=== PATIENT | male | born 1965 | race Asian ===

== ENCOUNTER 2019-11-14 23:13 | Inpatient (IN) | payer OTHER ==
[~2019-11-14] VITALS: Ht 162.6 cm; Wt 59.0 kg
[2019-11-14 23:39] LABS: COLOR,URINE YELLOW (Yellow); GLUCOSE, URINE NEGATIVE (Neg); KETONES,URINE NEGATIVE (Neg); LEUKOCYTE ESTERASE ,URINE MODERATE (Neg); NITRITES, URINE POSITIVE (Neg); OCCULT BLOOD,URINE LARGE (Neg); PROTEIN,URINE >=300 mg/dl (Neg); UROBILINOGEN,URINE 0.2 E.U/dL (0.2-1.0)
[2019-11-14 23:47] LABS: CLARITY,URINE CLOUDY (Clear); UA COLLECTION TYPE CLN CATCH MIDSTREAM
[2019-11-14 23:48] LABS: BASOPHILS % (AUTO) 0.2 % (0-1); EOSINOPHILS # (AUTO) 0.1 X10'3 (0-0.9); EOSINOPHILS % (AUTO) 0.3 % (0-6); HEMOGLOBIN 11.3 g/dl (14.0-17.9); LYMPHOCYTES # (AUTO) 1.6 X10'3 (1.1-4.8); LYMPHOCYTES % (AUTO) 8.1 % (21-51); MEAN CORPUSCULAR HEMOGLOBIN 30.9 PG (27.0-31.0); MEAN CORPUSCULAR HGB CONC 34.4 g/dL (33.0-36.5); MEAN PLATELET VOLUME 8.8 FL (7.4-10.4); MONOCYTES # (AUTO) 2.5 X10'3 (0-0.9); MONOCYTES % (AUTO) 12.9 % (2-12); NEUTROPHILS # (AUTO) 15.3 X10'3 (1.8-7.7); NEUTROPHILS % (AUTO) 78.5 % (42-75); PLATELET COUNT 244 X10'3 (140-440); RED BLOOD COUNT 3.66 X10'6 (4.70-6.10); RED CELL DISTRIBUTION WIDTH 13.8 % (11.5-14.5); WHITE BLOOD COUNT 19.5 X10'3 (4.5-11.0)
[2019-11-14 23:48] LABS: BACTERIA,URINE 1+ /HPF (Neg); SQUAMOUS EPITHELIAL CELL,UR FEW /LPF (FEW); WBC CLUMPS,URINE FEW /HPF (NEGATIVE); WBC,URINE TNTC /HPF (0-4)
[2019-11-14 23:57] LABS: ALANINE AMINOTRANSFERASE 26 U/L (12-78); ALBUMIN 2.5 G/DL (3.4-5.0); ALBUMIN/GLOBULIN RATIO 0.6 (1.1-1.5); ALKALINE PHOSPHATASE 70 IU/L (46-116); ANION GAP 10 (8-16); ASPARTATE AMINO TRANSFERASE 18 U/L (10-37); BILIRUBIN,TOTAL 0.4 MG/DL (0.1-1.0); BLOOD UREA NITROGEN 105 MG/DL (7-18); BUN/CREATININE RATIO 32.6 (5.4-32.0); CHLORIDE 93 MMOL/L (99-107); CREATININE 3.22 MG/DL (0.60-1.10); GLUCOSE 141 MG/DL (70-104); LIPASE 260 U/L (73-393); POTASSIUM 3.4 MMOL/L (3.5-5.1); SODIUM 127 MMOL/L (135-145); TOTAL CARBON DIOXIDE 24.4 MMOL/L (24-32); TOTAL PROTEIN 6.9 G/DL (6.4-8.2); eGFR 20 ML/MIN
[2019-11-15] VITALS (21 sets, daily range): BP systolic 103–189; BP diastolic 51–94
[2019-11-15] MEDS ORDERED: morphine 4 MG/ML inj SYRINge IV PRN ×2 (01:10→11:50)
[2019-11-15] MEDS ORDERED: normal saline 1000ML IV soln IV ONE (01:10)
[2019-11-15] MEDS ORDERED: CefTRIAXone 2gm/D5W 50ml 50 ML IV ONE (01:10)
[2019-11-15] MEDS ORDERED: ondansetron/PF 4mg/2ml inj IV ONE (01:10)
[2019-11-15] MEDS ORDERED: ketorolac tromethamine 15mg/ml inj. IM ONE (01:25)
[2019-11-15] MEDS ORDERED: levoFLOXACIN-Levaquin 500mg/D5 100 ML IV ONE (01:25)
[2019-11-15 02:30] LABS: ETHANOL < 0.010 GM/DL (0.0-0.010)
[2019-11-15] MEDS ORDERED: famotidine/PF 10 mg/ml inj IV ONE (02:45)
[2019-11-15] MEDS ORDERED: pantoprazole 40 MG vial IV ONE (02:45)
[2019-11-15] MEDS ORDERED: NO HOME MEDS (02:56)
[2019-11-15] MEDS ORDERED: pantoprazole 40MG/NS 100ML BAG 100 ML IV ONE (03:07)
[2019-11-15 04:02] LABS: URINE AMPHETAMINE SCREEN NEGATIVE (Neg); URINE BARBITUATE SCREEN NEGATIVE (Neg); URINE BENZODIAZEPINES SCREEN NEGATIVE (Neg); URINE CANNABINOID SCREEN NEGATIVE (Neg); URINE COCAINE SCREEN NEGATIVE (Neg); URINE METHADONE SCREEN NEGATIVE (Neg); URINE OPIATE SCREEN POSITIVE (Neg); URINE PHENCYCLIDINE SCREEN NEGATIVE (Neg)
[2019-11-15] MEDS ORDERED: potassium CL 10mEq/100ml bag 100 ML IV PRN (05:10)
[2019-11-15] MEDS ORDERED: morphine 2 MG/ML inj. syringe IV PRN ×3 (05:10→11:50)
[2019-11-15] MEDS ORDERED: potassium Cl 20 mEq SR tablet PO PRN ×2 (05:10)
[2019-11-15] MEDS ORDERED: ondansetron/PF 4mg/2ml inj IV PRN ×2 (05:10→11:50)
--- NOTE | 2019-11-15 06:21 | NUR ---
Received report from Wilda BONILLA.
--- NOTE | 2019-11-15 07:46 | NUR ---
SBAR TO DO BONILLA
[2019-11-15] MEDS: K and/or MAG REPLACEMENT MC SCH ×2 (08:00→19:53)
--- NOTE | 2019-11-15 08:00 | NUR ---
Pt. brought to floor. Fluids running and pt. not in a gown. Pt. redressed and vitals taken.
--- NOTE | 2019-11-15 08:09 | NUR ---
PAGER ID: [phone] MESSAGE: Jose Carlos LANGSTON transferred from ER to room 360A on surgical. Thank you. Gabriela [phone]
[2019-11-15 08:59] LABS: OCCULT BLOOD STOOL POSITIVE (Neg)
[2019-11-15] MEDS: normal saline 1000ml 1,000 ML IV SCH ×3 (09:02→18:26)
[2019-11-15] MEDS: CefTRIAXone/D5W-Rocephin 1gm 50 ML IV SCH (09:02)
[2019-11-15] MEDS: potassium CL 10mEq/100ml bag 100 ML IV PRN ×3 (09:03→16:37)
[2019-11-15] MEDS ORDERED: ringers solution, lacted 1,000 ML IV SCH (11:47)
[2019-11-15] MEDS ORDERED: ringers solution, lacted 1,000 ML IV ONE (11:47)
[2019-11-15] MEDS ORDERED: labetalol 20mg/4ml (5mg/ml) syringe IV PRN (11:50)
[2019-11-15] MEDS ORDERED: hydrALAZINE 20mg/ml inj. IV PRN (11:50)
[2019-11-15] MEDS ORDERED: fentaNYL/PF 50MCG/1 ML 2ML syringe IV PRN ×2 (11:50)
[2019-11-15] MEDS ORDERED: sevoflurane 250ml liquid IH ONE (12:32)
[2019-11-15] MEDS ORDERED: dexamethasone sod phosphate 10mg/ml inj ONE (12:32)
[2019-11-15] MEDS ORDERED: LIDOcaine 2% (20mg/ml) 5ml vial ONE (12:38)
[2019-11-15] MEDS ORDERED: fentaNYL/PF 50MCG/1 ML 2ML syringe ONE ×3 (12:38→18:40)
[2019-11-15] MEDS ORDERED: propofol inj 20 ML IV ONE (12:38)
[2019-11-15] MEDS ORDERED: ondansetron/PF 4mg/2ml inj ONE (12:45)
[2019-11-15] MEDS ORDERED: iohexol 300 MG/1 ML 50ml polymer ONE (12:57)
[2019-11-15] MEDS ORDERED: naloxone 0.4 mg/ml inj ONE (13:21)
--- NOTE | 2019-11-15 13:30 | NUR ---
Received from OR via BED, accompanied by Anesthesiologist DR FONSECA-- and report given by Anesthesiolgist. PATIENT A&OX4, DENIES PAIN, V/S WNL, NEUROVASCULAR CHECKS INTACT, 20G PIV RUE, SCD ON,
--- NOTE | 2019-11-15 14:20 | NUR ---
PATIENT A&OX4, DENIES PAIN, V/S WNL, NEUROVASCULAR CHECKS INTACT, 20G PIV RUE, SCD ON, PATIENT TAKEN TO 360A WITH ALL BELONGINGS AND HOOKED UP TO MONITORS IN ROOM AND REPORT GIVEN TO RN WHO HAS TAKEN OVER PATIENT CARE.
[2019-11-15] MEDS: pantoprazole 40MG/NS 100ML BAG 100 ML IV SCH ×3 (14:34→22:27)
--- NOTE | 2019-11-15 16:01 | NUR ---
PAGER ID: [phone] MESSAGE: pT. Jose Acrlos Reg[facility] 360a PT WANTS A DIET. CAN HE AT LEAST HAVE ICE CHIPS? DO [id number]
--- NOTE | 2019-11-15 16:03 | NUR ---
SPOKE WITH ON PHONE. PT CAN NOT HAVE ICE CHIPS UNTIL RESULTS READ AFTER EGD. EGD PLANNED TODAY. CALLED GI LAB. SPOKE WITH Lucas. SHE SAYS KODY IS STILL AT [facility] SO IT MAY BE AWHILE.
[2019-11-15] MEDS ORDERED: LIDOcaine Viscous 15ml cup ONE (18:40)
[2019-11-15] MEDS ORDERED: MIDAZolam 5mg/5ml vial ONE (18:40)
--- NOTE | 2019-11-15 18:45 | NUR ---
Received report from primary care nurse Gabriela BONILLA. Assumed patient care. Patient is not on the floor at this time.
--- NOTE | 2019-11-15 18:47 | NUR ---
GAVE REPORT TO FABIANA BONILLA. PT. STILL IN EGD IN GI LAB WITH KODY.
[2019-11-15] MEDS ORDERED: epiNEPHrine 0.1mg/ml 10ml syringe ONE (18:56)
[2019-11-16] VITALS: BP 121/75
[2019-11-16] MEDS: pantoprazole 40MG/NS 100ML BAG 100 ML IV SCH ×5 (01:00→21:00)
[2019-11-16] MEDS: normal saline 1000ml 1,000 ML IV SCH ×4 (03:00→18:52)
[2019-11-16 05:28] LABS: BASOPHILS % (AUTO) 0.2 % (0-1); EOSINOPHILS % (AUTO) 0 % (0-6); HEMATOCRIT 23.8 % (42.0-52.0); HEMOGLOBIN 8.1 g/dl (14.0-17.9); LYMPHOCYTES # (AUTO) 0.4 X10'3 (1.1-4.8); LYMPHOCYTES % (AUTO) 4.7 % (21-51); MEAN CORPUSCULAR HEMOGLOBIN 31.2 PG (27.0-31.0); MEAN CORPUSCULAR HGB CONC 34.2 g/dL (33.0-36.5); MEAN CORPUSCULAR VOLUME 91.2 FL (78-98); MONOCYTES # (AUTO) 0.3 X10'3 (0-0.9); NEUTROPHILS % (AUTO) 91.1 % (42-75); PLATELET COUNT 204 X10'3 (140-440); RED CELL DISTRIBUTION WIDTH 14.4 % (11.5-14.5); WHITE BLOOD COUNT 8.8 X10'3 (4.5-11.0)
[2019-11-16 05:43] LABS: ALANINE AMINOTRANSFERASE 15 U/L (12-78); ALBUMIN 1.8 G/DL (3.4-5.0); ALBUMIN/GLOBULIN RATIO 0.5 (1.1-1.5); ALKALINE PHOSPHATASE 51 IU/L (46-116); ANION GAP 9 (8-16); ASPARTATE AMINO TRANSFERASE 12 U/L (10-37); BILIRUBIN,TOTAL 0.2 MG/DL (0.1-1.0); BLOOD UREA NITROGEN 83 MG/DL (7-18); BUN/CREATININE RATIO 28.4 (5.4-32.0); CALCIUM 7.4 MG/DL (8.5-10.1); CHLORIDE 105 MMOL/L (99-107); CREATININE 2.92 MG/DL (0.60-1.10); GLUCOSE 199 MG/DL (70-104); POTASSIUM 5.1 MMOL/L (3.5-5.1); SODIUM 135 MMOL/L (135-145); TOTAL CARBON DIOXIDE 20.9 MMOL/L (24-32); TOTAL PROTEIN 5.5 G/DL (6.4-8.2); eGFR 23 ML/MIN
[2019-11-16] MEDS ORDERED: famotidine/PF 10 mg/ml inj IV ONE (06:00)
--- NOTE | 2019-11-16 06:40 | NUR ---
Reported off to Jaclyn BONILLA. Patient is awake and alert on room air. Call light and items of frequent use within reach.
--- NOTE | 2019-11-16 06:47 | NUR ---
Patient in room [facility]. I have received report from Sania BONILLA and had the opportunity to ask questions and assume patient care.
[2019-11-16 07:15] VITALS: BP 152/80
[2019-11-16] MEDS: K and/or MAG REPLACEMENT MC SCH ×2 (08:00→18:46)
[2019-11-16] MEDS: CefTRIAXone/D5W-Rocephin 1gm 50 ML IV SCH (08:23)
[2019-11-16 12:00] VITALS: BP 187/83
[2019-11-16 15:47] VITALS: BP 167/87
[2019-11-16] MEDS: levoFLOXACIN-Levaquin 250mg/D5 50 ML IV SCH (16:12)
[2019-11-16 18:00] VITALS: BP 184/74
--- NOTE | 2019-11-16 18:34 | NUR ---
patient up and about no c/o pain. Diet advanced to full liquid. seen by Dr tabares. Ok to advance diet to full liquid, and to change protonix drip to 40mg po bid when tolerating diet . Report given to Isabel Hodge RN
--- NOTE | 2019-11-16 18:47 | NUR ---
Patient in room [facility]. I have received report from IRENE Anaya and had the opportunity to ask questions and assume patient care.
[2019-11-16] MEDS: lactobacillus rhamnosus 10,000 MMU CELLS/CAPSULE PO SCH (20:00)
--- NOTE | 2019-11-16 22:21 | NUR ---
Notified of positive blood cultures. ordered vanco; pharmacy to dose.
[2019-11-16] MEDS ORDERED: vancomycin/NS 1 GM ADD-VANTAGE 250 ML IV SCH (22:30)
[2019-11-17] VITALS (7 sets, daily range): BP systolic 153–185; BP diastolic 78–91
[2019-11-17] MEDS: normal saline 1000ml 1,000 ML IV SCH ×4 (02:44→22:42)
--- NOTE | 2019-11-17 06:22 | NUR ---
Problems reprioritized. Patient report given, questions answered & plan of care reviewed with IRENE Kathleen.
--- NOTE | 2019-11-17 06:43 | NUR ---
Patient in room [facility]. I have received report from Chio Hodge RN and had the opportunity to ask questions and assume patient care.
[2019-11-17 07:11] LABS: BASOPHILS % (AUTO) 0.1 % (0-1); EOSINOPHILS # (AUTO) 0.1 X10'3 (0-0.9); EOSINOPHILS % (AUTO) 0.6 % (0-6); HEMATOCRIT 25.4 % (42.0-52.0); HEMOGLOBIN 8.7 g/dl (14.0-17.9); LYMPHOCYTES # (AUTO) 0.9 X10'3 (1.1-4.8); LYMPHOCYTES % (AUTO) 8.6 % (21-51); MEAN CORPUSCULAR HEMOGLOBIN 31.3 PG (27.0-31.0); MEAN CORPUSCULAR HGB CONC 34.2 g/dL (33.0-36.5); MEAN CORPUSCULAR VOLUME 91.6 FL (78-98); MONOCYTES # (AUTO) 1.5 X10'3 (0-0.9); NEUTROPHILS # (AUTO) 7.9 X10'3 (1.8-7.7); NEUTROPHILS % (AUTO) 76.7 % (42-75); PLATELET COUNT 313 X10'3 (140-440); RED BLOOD COUNT 2.77 X10'6 (4.70-6.10); RED CELL DISTRIBUTION WIDTH 14.3 % (11.5-14.5); WHITE BLOOD COUNT 10.3 X10'3 (4.5-11.0)
--- NOTE | 2019-11-17 07:13 | NUR ---
PAGER ID: [phone] MESSAGE: RE: 360A, Jose Carlos eJrome. No labs ordered for today. K+ was 5.1 yesterday, H/H 8.1/23.8. Do you want labs drawn today? thank you, Frannie [phone]
[2019-11-17 07:36] LABS: ALANINE AMINOTRANSFERASE 56 U/L (12-78); ALBUMIN/GLOBULIN RATIO 0.6 (1.1-1.5); ALKALINE PHOSPHATASE 60 IU/L (46-116); ANION GAP 8 (8-16); ASPARTATE AMINO TRANSFERASE 57 U/L (10-37); BILIRUBIN,TOTAL 0.3 MG/DL (0.1-1.0); BLOOD UREA NITROGEN 44 MG/DL (7-18); BUN/CREATININE RATIO 21.7 (5.4-32.0); CALCIUM 7.5 MG/DL (8.5-10.1); CHLORIDE 108 MMOL/L (99-107); CREATININE 2.03 MG/DL (0.60-1.10); GLUCOSE 93 MG/DL (70-104); MAGNESIUM 1.6 MG/DL (1.5-2.4); POTASSIUM 4.2 MMOL/L (3.5-5.1); SODIUM 139 MMOL/L (135-145); TOTAL CARBON DIOXIDE 22.7 MMOL/L (24-32); TOTAL PROTEIN 5.5 G/DL (6.4-8.2); eGFR 34 ML/MIN
[2019-11-17] MEDS: levoFLOXACIN-Levaquin 250mg/D5 50 ML IV SCH (07:37)
[2019-11-17] MEDS: lactobacillus rhamnosus 10,000 MMU CELLS/CAPSULE PO SCH ×2 (07:37→19:35)
[2019-11-17] MEDS: pantoprazole 40mg Tablet.DR PO SCH ×2 (07:37→19:35)
[2019-11-17] MEDS: K and/or MAG REPLACEMENT MC SCH ×2 (08:00→19:30)
--- NOTE | 2019-11-17 10:16 | NUR ---
Report given to Dr Goldsmith, elevated BPs reviewed from this a.m. Dr will review for orders PRN
[2019-11-17] MEDS: metoprolol tartrate 12.5mg (1/2 tablet) PO SCH ×2 (10:44→19:35)
--- NOTE | 2019-11-17 15:19 | NUR ---
PAGER ID: [phone] MESSAGE: [facility] [id number] Re: Queenie HolderA + BC Please call
--- NOTE | 2019-11-17 15:55 | NUR ---
PAGER ID: [phone] MESSAGE: re: ROOM 360A, Jose Carlos Jerome. Just making sure you got message about positive blood cultures,2nd bottle,aerobic, L arm, gram + cocci cluster. thank you, Frannie [phone]
--- NOTE | 2019-11-17 18:28 | NUR ---
Problems reprioritized. Patient report given, questions answered & plan of care reviewed with Chio Hodge RN.
--- NOTE | 2019-11-17 18:50 | NUR ---
Patient in room [facility]. I have received report from IRENE Kathleen and had the opportunity to ask questions and assume patient care.
[2019-11-18] VITALS: BP 179/90
[2019-11-18] MEDS: normal saline 1000ml 1,000 ML IV SCH ×2 (05:08→17:40)
[2019-11-18 05:30] LABS: ALANINE AMINOTRANSFERASE 50 U/L (12-78); ALBUMIN/GLOBULIN RATIO 0.6 (1.1-1.5); ALKALINE PHOSPHATASE 55 IU/L (46-116); ANION GAP 7 (8-16); ASPARTATE AMINO TRANSFERASE 32 U/L (10-37); BILIRUBIN,TOTAL 0.4 MG/DL (0.1-1.0); BLOOD UREA NITROGEN 24 MG/DL (7-18); BUN/CREATININE RATIO 14.1 (5.4-32.0); CALCIUM 7.3 MG/DL (8.5-10.1); CHLORIDE 106 MMOL/L (99-107); GLUCOSE 92 MG/DL (70-104); POTASSIUM 3.7 MMOL/L (3.5-5.1); SODIUM 138 MMOL/L (135-145); TOTAL CARBON DIOXIDE 24.7 MMOL/L (24-32); TOTAL PROTEIN 5.3 G/DL (6.4-8.2); eGFR 42 ML/MIN
[2019-11-18 05:34] LABS: BASOPHILS % (AUTO) 0.3 % (0-1); EOSINOPHILS # (AUTO) 0.3 X10'3 (0-0.9); EOSINOPHILS % (AUTO) 3.6 % (0-6); HEMATOCRIT 25.3 % (42.0-52.0); HEMOGLOBIN 8.5 g/dl (14.0-17.9); LYMPHOCYTES # (AUTO) 1.4 X10'3 (1.1-4.8); LYMPHOCYTES % (AUTO) 17.7 % (21-51); MEAN CORPUSCULAR HEMOGLOBIN 30.2 PG (27.0-31.0); MEAN CORPUSCULAR HGB CONC 33.5 g/dL (33.0-36.5); MEAN CORPUSCULAR VOLUME 90.2 FL (78-98); MEAN PLATELET VOLUME 7.8 FL (7.4-10.4); MONOCYTES # (AUTO) 1.6 X10'3 (0-0.9); MONOCYTES % (AUTO) 20.2 % (2-12); NEUTROPHILS # (AUTO) 4.6 X10'3 (1.8-7.7); NEUTROPHILS % (AUTO) 58.2 % (42-75); PLATELET COUNT 339 X10'3 (140-440); RED CELL DISTRIBUTION WIDTH 14.4 % (11.5-14.5); WHITE BLOOD COUNT 7.9 X10'3 (4.5-11.0)
--- NOTE | 2019-11-18 06:40 | NUR ---
Problems reprioritized. Patient report given, questions answered & plan of care reviewed with IRENE Jaramillo.
--- NOTE | 2019-11-18 06:44 | NUR ---
Patient in room [facility]. I have received report from IRENE Hall and had the opportunity to ask questions and assume patient care.
[2019-11-18 08:00] VITALS: BP 158/86
[2019-11-18] MEDS: K and/or MAG REPLACEMENT MC SCH ×2 (08:00→20:00)
[2019-11-18] MEDS: lactobacillus rhamnosus 10,000 MMU CELLS/CAPSULE PO SCH ×2 (08:08→19:52)
[2019-11-18] MEDS: pantoprazole 40mg Tablet.DR PO SCH ×2 (08:08→19:52)
[2019-11-18] MEDS: metoprolol tartrate 12.5mg (1/2 tablet) PO SCH ×2 (08:09→19:52)
[2019-11-18] MEDS: levoFLOXACIN-Levaquin 250mg/D5 50 ML IV SCH (08:10)
[2019-11-18 09:46] LABS: ANISOCYTOSIS FEW; PLATELET ESTIMATE NORMAL; TOTAL CELLS COUNTED 100
[2019-11-18 09:47] LABS: POLYCHROMASIA 1+
[2019-11-18 09:49] LABS: SMUDGE CELLS 1+
[2019-11-18 11:00] VITALS: BP 163/82
[2019-11-18] MEDS: nafcillin inj 2 GM in normal saline 100ml IV soln 100 ML IV SCH ×2 (14:07→19:52)
--- NOTE | 2019-11-18 18:10 | NUR ---
Patient in room [facility]. I have received report from IRENE Jaramillo and had the opportunity to ask questions and assume patient care.
--- NOTE | 2019-11-18 18:14 | NUR ---
Problems reprioritized. Patient report given, questions answered & plan of care reviewed with IRENE Hall. pt tolerating regular diet well. No c/o pain or discomfort.
[2019-11-18 19:37] VITALS: BP 180/78
[2019-11-18 19:38] VITALS: BP 175/87
--- NOTE | 2019-11-18 20:03 | NUR ---
Patient pulled IV when bathing at the bedside.
[2019-11-19] MEDS: nafcillin inj 2 GM in normal saline 100ml IV soln 100 ML IV SCH ×4 (02:36→20:19)
[2019-11-19] MEDS: normal saline 1000ml 1,000 ML IV SCH ×2 (05:11→22:25)
[2019-11-19 05:14] VITALS: BP 159/83
[2019-11-19 05:51] LABS: ALANINE AMINOTRANSFERASE 38 U/L (12-78); ALBUMIN 1.9 G/DL (3.4-5.0); ALBUMIN/GLOBULIN RATIO 0.6 (1.1-1.5); ALKALINE PHOSPHATASE 52 IU/L (46-116); ANION GAP 6 (8-16); ASPARTATE AMINO TRANSFERASE 14 U/L (10-37); BILIRUBIN,TOTAL 0.6 MG/DL (0.1-1.0); BLOOD UREA NITROGEN 25 MG/DL (7-18); BUN/CREATININE RATIO 13.4 (5.4-32.0); CALCIUM 7.3 MG/DL (8.5-10.1); CHLORIDE 107 MMOL/L (99-107); CREATININE 1.86 MG/DL (0.60-1.10); GLUCOSE 135 MG/DL (70-104); POTASSIUM 4.1 MMOL/L (3.5-5.1); SODIUM 139 MMOL/L (135-145); TOTAL PROTEIN 5.2 G/DL (6.4-8.2); eGFR 38 ML/MIN
[2019-11-19 06:08] LABS: BASOPHILS # (AUTO) 0.1 X10'3 (0-0.2); BASOPHILS % (AUTO) 0.5 % (0-1); EOSINOPHILS # (AUTO) 0.7 X10'3 (0-0.9); EOSINOPHILS % (AUTO) 6.1 % (0-6); HEMATOCRIT 24.5 % (42.0-52.0); HEMOGLOBIN 8.4 g/dl (14.0-17.9); LYMPHOCYTES # (AUTO) 2.9 X10'3 (1.1-4.8); LYMPHOCYTES % (AUTO) 24.3 % (21-51); MEAN CORPUSCULAR HEMOGLOBIN 31.1 PG (27.0-31.0); MEAN CORPUSCULAR HGB CONC 34.1 g/dL (33.0-36.5); MEAN PLATELET VOLUME 7.5 FL (7.4-10.4); MONOCYTES # (AUTO) 1.4 X10'3 (0-0.9); MONOCYTES % (AUTO) 11.8 % (2-12); NEUTROPHILS # (AUTO) 6.8 X10'3 (1.8-7.7); NEUTROPHILS % (AUTO) 57.3 % (42-75); PLATELET COUNT 416 X10'3 (140-440); RED BLOOD COUNT 2.69 X10'6 (4.70-6.10); RED CELL DISTRIBUTION WIDTH 14.1 % (11.5-14.5); WHITE BLOOD COUNT 11.8 X10'3 (4.5-11.0)
--- NOTE | 2019-11-19 06:29 | NUR ---
Problems reprioritized. Patient report given, questions answered & plan of care reviewed with IRENE Jaramillo.
--- NOTE | 2019-11-19 06:31 | NUR ---
Patient in room [facility]. I have received report from IRENE Hall and had the opportunity to ask questions and assume patient care.
[2019-11-19 08:00] VITALS: BP 156/76
[2019-11-19] MEDS: lactobacillus rhamnosus 10,000 MMU CELLS/CAPSULE PO SCH ×2 (08:00→20:20)
[2019-11-19] MEDS: K and/or MAG REPLACEMENT MC SCH ×2 (08:00→20:00)
[2019-11-19] MEDS: metoprolol tartrate 12.5mg (1/2 tablet) PO SCH ×2 (08:01→20:20)
[2019-11-19] MEDS: pantoprazole 40mg Tablet.DR PO SCH ×2 (08:01→20:21)
[2019-11-19 09:29] LABS: HIV ANTIBODY 1&2 RAPID NON-REACTIVE (Neg)
[2019-11-19 12:00] VITALS: BP 146/80
[2019-11-19 12:18] LABS: H PYLORI ANTIBODY POSITIVE (Neg)
--- NOTE | 2019-11-19 18:37 | NUR ---
Problems reprioritized. Patient report given, questions answered & plan of care reviewed with Arely RN.
[2019-11-20] MEDS: nafcillin inj 2 GM in normal saline 100ml IV soln 100 ML IV SCH ×3 (01:57→14:47)
[2019-11-20 05:18] LABS: BASOPHILS # (AUTO) 0.1 X10'3 (0-0.2); EOSINOPHILS # (AUTO) 0.6 X10'3 (0-0.9); HEMATOCRIT 26.9 % (42.0-52.0); MEAN PLATELET VOLUME 7.2 FL (7.4-10.4)
[2019-11-20 05:21] LABS: BASOPHILS % (AUTO) 0.7 % (0-1); EOSINOPHILS % (AUTO) 4.8 % (0-6); HEMOGLOBIN 8.9 g/dl (14.0-17.9); LYMPHOCYTES # (AUTO) 3.1 X10'3 (1.1-4.8); LYMPHOCYTES % (AUTO) 23.3 % (21-51); MEAN CORPUSCULAR VOLUME 90.9 FL (78-98); MONOCYTES # (AUTO) 0.9 X10'3 (0-0.9); MONOCYTES % (AUTO) 7.2 % (2-12); NEUTROPHILS # (AUTO) 8.4 X10'3 (1.8-7.7); PLATELET COUNT 585 X10'3 (140-440); RED BLOOD COUNT 2.96 X10'6 (4.70-6.10); RED CELL DISTRIBUTION WIDTH 14.8 % (11.5-14.5); WHITE BLOOD COUNT 13.2 X10'3 (4.5-11.0)
[2019-11-20 06:05] LABS: ALANINE AMINOTRANSFERASE 32 U/L (12-78); ALBUMIN 2.1 G/DL (3.4-5.0); ALBUMIN/GLOBULIN RATIO 0.6 (1.1-1.5); ALKALINE PHOSPHATASE 46 IU/L (46-116); ANION GAP 6 (8-16); ASPARTATE AMINO TRANSFERASE 13 U/L (10-37); BILIRUBIN,TOTAL 0.3 MG/DL (0.1-1.0); BLOOD UREA NITROGEN 24 MG/DL (7-18); BUN/CREATININE RATIO 14.9 (5.4-32.0); CALCIUM 7.4 MG/DL (8.5-10.1); CHLORIDE 106 MMOL/L (99-107); CREATININE 1.61 MG/DL (0.60-1.10); GLUCOSE 91 MG/DL (70-104); POTASSIUM 3.8 MMOL/L (3.5-5.1); SODIUM 140 MMOL/L (135-145); TOTAL CARBON DIOXIDE 28.2 MMOL/L (24-32); TOTAL PROTEIN 5.8 G/DL (6.4-8.2); eGFR 45 ML/MIN
--- NOTE | 2019-11-20 06:25 | NUR ---
Patient in room [facility]. I have received report from IRENE KOENIG and had the opportunity to ask questions and assume patient care.
[2019-11-20 06:33] LABS: TOTAL CELLS COUNTED 100
[2019-11-20 06:34] LABS: LARGE PLATELETS FEW; PLATELET ESTIMATE INCREASED
[2019-11-20 07:00] VITALS: BP 160/79
[2019-11-20] MEDS: K and/or MAG REPLACEMENT MC SCH ×2 (08:00→20:00)
[2019-11-20] MEDS: lactobacillus rhamnosus 10,000 MMU CELLS/CAPSULE PO SCH ×2 (08:20→22:10)
[2019-11-20] MEDS: pantoprazole 40mg Tablet.DR PO SCH ×2 (08:21→22:10)
[2019-11-20] MEDS: metoprolol tartrate 12.5mg (1/2 tablet) PO SCH ×2 (08:21→22:11)
[2019-11-20] MEDS: normal saline 1000ml 1,000 ML IV SCH (08:23)
--- NOTE | 2019-11-20 10:56 | NUR ---
Great appetite, eating 75-100% of regular diet, no current nutrition problem. Per physician progress notes patient positive for h. pylori and has multiple gastric ulcers, receiving treatment for SUREKHA and MSSA sepsis. Last BM 11/18 small. Weight stable. Recommend: 1. continue regular diet 2. wt per rx Addendum: 11/20/19 at [address] Amended: Links added.
[2019-11-20] MEDS ORDERED: amLODIPine 5mg tablet PO SCH (11:10)
[2019-11-20 11:45] LABS: CHOL/HDL RATIO 3.3 (0.00-4.99); CHOLESTEROL 131 MG/DL (0-200); HDL CHOLESTEROL 40 MG/DL (35-60); LDL CHOLESTEROL 83 MG/DL (50-100); TRIGLYCERIDES 56 MG/DL (20-135)
--- NOTE | 2019-11-20 14:05 | NUR ---
Patients stool was loose stool Addendum: 11/20/19 at 1430 by John LAMB Amended: Links added.
[2019-11-20 15:56] VITALS: BP 154/83
--- NOTE | 2019-11-20 16:53 | NUR ---
Student documentation: I have reviewed all interventions, assessments performed and documented by Ricardo POPE. Student Medication Administration: For all medication-pass' in the time frame of 4584-5171, all medication were reviewed, dispensed, administered and documented per hospital policy by Ricardo POPE.
[2019-11-20 18:00] VITALS: BP 158/80
--- NOTE | 2019-11-20 18:40 | NUR ---
Problems reprioritized. Patient report given, questions answered & plan of care reviewed with IRENE PRADHAN.
--- NOTE | 2019-11-20 19:25 | NUR ---
Patient in room [facility]. I have received report from Daniela Bonilla RN and had the opportunity to ask questions and assume patient care.
[2019-11-20] MEDS: amoxicillin 250mg capsule PO SCH (22:11)
[2019-11-21 00:05] VITALS: BP 158/80
[2019-11-21] MEDS: normal saline 1000ml 1,000 ML IV SCH (02:26)
--- NOTE | 2019-11-21 06:15 | NUR ---
Patient in room [facility]. I have received report from IRENE Rogers and had the opportunity to ask questions and assume patient care.
[2019-11-21 06:30] VITALS: BP 146/78
--- NOTE | 2019-11-21 06:53 | NUR ---
Problems reprioritized. Patient report given, questions answered & plan of care reviewed with IRENE Hunt.
[2019-11-21] MEDS: K and/or MAG REPLACEMENT MC SCH ×2 (07:19→20:12)
[2019-11-21 09:49] LABS: HBSAG SCREEN Negative (Negative); HEP A AB, IGM Negative (Negative); HEPATITIS C ANTIBODY <0.1 s/co ratio (0.0-0.9)
[2019-11-21] MEDS: lactobacillus rhamnosus 10,000 MMU CELLS/CAPSULE PO SCH ×2 (10:19→21:13)
[2019-11-21] MEDS: metoprolol tartrate 12.5mg (1/2 tablet) PO SCH ×2 (10:21→21:13)
[2019-11-21] MEDS: amLODIPine 5mg tablet PO SCH (10:22)
[2019-11-21] MEDS: pantoprazole 40mg Tablet.DR PO SCH ×2 (10:23→21:13)
[2019-11-21] MEDS: rifampin 300mg capsule PO SCH (10:24)
[2019-11-21] MEDS: amoxicillin 250mg capsule PO SCH ×2 (10:25→21:13)
[2019-11-21 11:14] VITALS: BP 152/81
[2019-11-21] MEDS: potassium chloride 10mEq ER tablet PO SCH (12:11)
--- NOTE | 2019-11-21 18:10 | NUR ---
Problems reprioritized. Patient report given, questions answered & plan of care reviewed with IRENE Lui.
--- NOTE | 2019-11-21 18:20 | NUR ---
Received report from primary care nurse Marilee RN. Patient is awake and alert on room air. Patient is ambulating in the frank.
[2019-11-21 19:00] VITALS: BP 150/83
[2019-11-22 00:22] VITALS: BP 155/90
[2019-11-22 05:43] LABS: BASOPHILS # (AUTO) 0.1 X10'3 (0-0.2); EOSINOPHILS # (AUTO) 0.6 X10'3 (0-0.9); HEMOGLOBIN 8.6 g/dl (14.0-17.9); RED CELL DISTRIBUTION WIDTH 14.7 % (11.5-14.5)
[2019-11-22 05:45] LABS: BASOPHILS % (AUTO) 0.7 % (0-1); EOSINOPHILS % (AUTO) 4.4 % (0-6); HEMATOCRIT 26.2 % (42.0-52.0); LYMPHOCYTES # (AUTO) 3.1 X10'3 (1.1-4.8); LYMPHOCYTES % (AUTO) 23.4 % (21-51); MEAN CORPUSCULAR HGB CONC 32.8 g/dL (33.0-36.5); MEAN CORPUSCULAR VOLUME 91.5 FL (78-98); MONOCYTES % (AUTO) 7.5 % (2-12); NEUTROPHILS # (AUTO) 8.5 X10'3 (1.8-7.7); PLATELET COUNT 704 X10'3 (140-440); RED BLOOD COUNT 2.86 X10'6 (4.70-6.10); WHITE BLOOD COUNT 13.3 X10'3 (4.5-11.0)
--- NOTE | 2019-11-22 06:05 | NUR ---
Patient in room [facility]. I have received report from Anuel POPE (working with Sania BONILLA) and had the opportunity to ask questions and assume patient care.
--- NOTE | 2019-11-22 06:28 | NUR ---
Reported off to Conner BONILLA. Patient is awake and alert on room air. Call light and items of frequent use within reach.
[2019-11-22 06:30] LABS: ALANINE AMINOTRANSFERASE 34 U/L (12-78); ALBUMIN 2.4 G/DL (3.4-5.0); ALBUMIN/GLOBULIN RATIO 0.6 (1.1-1.5); ALKALINE PHOSPHATASE 56 IU/L (46-116); ANION GAP 8 (8-16); ASPARTATE AMINO TRANSFERASE 23 U/L (10-37); BILIRUBIN,TOTAL 0.4 MG/DL (0.1-1.0); BLOOD UREA NITROGEN 9 MG/DL (7-18); BUN/CREATININE RATIO 5.1 (5.4-32.0); CALCIUM 7.8 MG/DL (8.5-10.1); CHLORIDE 104 MMOL/L (99-107); CREATININE 1.75 MG/DL (0.60-1.10); GLUCOSE 90 MG/DL (70-104); MAGNESIUM 1.6 MG/DL (1.5-2.4); POTASSIUM 4.8 MMOL/L (3.5-5.1); SODIUM 139 MMOL/L (135-145); TOTAL CARBON DIOXIDE 27.1 MMOL/L (24-32); TOTAL PROTEIN 6.5 G/DL (6.4-8.2); eGFR 41 ML/MIN
[2019-11-22 07:00] VITALS: BP 135/80
[2019-11-22] MEDS ORDERED: levoFLOXACIN 750MG TABLET PO SCH (08:00)
[2019-11-22] MEDS: K and/or MAG REPLACEMENT MC SCH ×2 (08:00→19:23)
[2019-11-22 09:17] LABS: TOTAL CELLS COUNTED 100
[2019-11-22 09:18] LABS: HYPOCHROMASIA 1+; PLATELET ESTIMATE INCREASED; POLYCHROMASIA 1+; ROULEAUX 1+
[2019-11-22 11:00] VITALS: BP 147/76
[2019-11-22] MEDS: amLODIPine 5mg tablet PO SCH (12:17)
[2019-11-22] MEDS: lactobacillus rhamnosus 10,000 MMU CELLS/CAPSULE PO SCH ×2 (12:18→19:24)
[2019-11-22] MEDS: potassium chloride 10mEq ER tablet PO SCH (12:18)
[2019-11-22] MEDS: amoxicillin 250mg capsule PO SCH ×2 (12:18→19:25)
[2019-11-22] MEDS: metoprolol tartrate 12.5mg (1/2 tablet) PO SCH ×2 (12:18→19:26)
[2019-11-22] MEDS: pantoprazole 40mg Tablet.DR PO SCH ×2 (12:18→19:27)
[2019-11-22] MEDS: rifampin 300mg capsule PO SCH (12:18)
--- NOTE | 2019-11-22 14:24 | NUR ---
Per Dr. Delacruz, patient is going home tomorrow
[2019-11-22] MEDS ORDERED: PANT40TA54 PO (14:52)
[2019-11-22] MEDS ORDERED: RIFA300C4 PO (14:52)
[2019-11-22] MEDS ORDERED: METO25TA6 PO (14:52)
[2019-11-22] MEDS ORDERED: NOR5T PO (14:52)
[2019-11-22] MEDS ORDERED: AMOX500C2 PO (14:52)
[2019-11-22] MEDS ORDERED: LEVO750T46 PO (14:52)
[2019-11-22] MEDS ORDERED: LACT1CAP26 PO (14:52)
--- NOTE | 2019-11-22 17:49 | NUR ---
Patient aware he is going home tomorrow. 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 Per patient, his sister will be the one to pick him up tomorrow and that it will take 1 hour and a half to get here. I told patient to give us an ETA(estimated time of arrival) of his sister for tomorrow.
--- NOTE | 2019-11-22 18:30 | NUR ---
Received report from Conner BONILLA with Sania BONILLA. Assumed patient care. Patient is alert and awake on room air. no apparent distress. call light and items of frequent use in reach. will continue to monitor.
--- NOTE | 2019-11-22 18:38 | NUR ---
Problems reprioritized. Patient report given, questions answered & plan of care reviewed with Sania BONILLA.
[2019-11-22 19:00] VITALS: BP 146/73
[2019-11-22] MEDS ORDERED: VANCOMYCIN LEVEL IV ONE (21:30)
[2019-11-23] VITALS: BP 157/83
[2019-11-23 05:12] LABS: BASOPHILS # (AUTO) 0.1 X10'3 (0-0.2); BASOPHILS % (AUTO) 0.7 % (0-1); LYMPHOCYTES # (AUTO) 2.8 X10'3 (1.1-4.8); LYMPHOCYTES % (AUTO) 23.8 % (21-51); MONOCYTES # (AUTO) 0.8 X10'3 (0-0.9); NEUTROPHILS # (AUTO) 7.5 X10'3 (1.8-7.7); WHITE BLOOD COUNT 11.6 X10'3 (4.5-11.0)
[2019-11-23 05:14] LABS: EOSINOPHILS # (AUTO) 0.4 X10'3 (0-0.9); EOSINOPHILS % (AUTO) 3.8 % (0-6); HEMATOCRIT 27.9 % (42.0-52.0); HEMOGLOBIN 9.1 g/dl (14.0-17.9); MEAN CORPUSCULAR HEMOGLOBIN 29.9 PG (27.0-31.0); MEAN CORPUSCULAR HGB CONC 32.6 g/dL (33.0-36.5); MEAN CORPUSCULAR VOLUME 91.8 FL (78-98); MEAN PLATELET VOLUME 6.4 FL (7.4-10.4); MONOCYTES % (AUTO) 7.2 % (2-12); NEUTROPHILS % (AUTO) 64.5 % (42-75); PLATELET COUNT 721 X10'3 (140-440); RED BLOOD COUNT 3.04 X10'6 (4.70-6.10); RED CELL DISTRIBUTION WIDTH 14.6 % (11.5-14.5)
[2019-11-23 05:37] LABS: ALANINE AMINOTRANSFERASE 36 U/L (12-78); ALBUMIN 2.5 G/DL (3.4-5.0); ALBUMIN/GLOBULIN RATIO 0.6 (1.1-1.5); ALKALINE PHOSPHATASE 63 IU/L (46-116); ANION GAP 7 (8-16); ASPARTATE AMINO TRANSFERASE 20 U/L (10-37); BILIRUBIN,TOTAL 0.4 MG/DL (0.1-1.0); BLOOD UREA NITROGEN 25 MG/DL (7-18); BUN/CREATININE RATIO 14.6 (5.4-32.0); CALCIUM 8.5 MG/DL (8.5-10.1); CHLORIDE 104 MMOL/L (99-107); CREATININE 1.71 MG/DL (0.60-1.10); GLUCOSE 94 MG/DL (70-104); MAGNESIUM 1.8 MG/DL (1.5-2.4); POTASSIUM 4.8 MMOL/L (3.5-5.1); SODIUM 139 MMOL/L (135-145); TOTAL CARBON DIOXIDE 28.3 MMOL/L (24-32); TOTAL PROTEIN 6.9 G/DL (6.4-8.2); eGFR 42 ML/MIN
--- NOTE | 2019-11-23 06:46 | NUR ---
Patient in room [facility]. I have received report from Sania BONILLA and had the opportunity to ask questions and assume patient care.
[2019-11-23 07:00] VITALS: BP_SYST 145; BP_SYST 165; BP_DIAS 65; BP_DIAS 79
[2019-11-23 07:59] LABS: PLATELET ESTIMATE INCREASED; TOTAL CELLS COUNTED 100
[2019-11-23] MEDS: K and/or MAG REPLACEMENT MC SCH (08:00)
[2019-11-23] MEDS: pantoprazole 40mg Tablet.DR PO SCH (08:45)
[2019-11-23] MEDS: amoxicillin 250mg capsule PO SCH (08:45)
[2019-11-23] MEDS: metoprolol tartrate 12.5mg (1/2 tablet) PO SCH (08:45)
[2019-11-23 08:46] VITALS: BP_SYST 145
[2019-11-23] MEDS: amLODIPine 5mg tablet PO SCH (08:46)
[2019-11-23] MEDS: lactobacillus rhamnosus 10,000 MMU CELLS/CAPSULE PO SCH (08:46)
[2019-11-23] MEDS: potassium chloride 10mEq ER tablet PO SCH (08:46)
[2019-11-23] MEDS: rifampin 300mg capsule PO SCH (08:46)
--- NOTE | 2019-11-23 10:17 | NUR ---
Pt stable and appropriate for d/c. PIV d/c'd cannula intact. Reviewed with Pt all d/c instructions and meds and followup, with pt verbalizing understanding and given opportunity to ask questions, answers provided. Prescriptions escripted to pharmacy of choice. Pt to call and schedule f/u with MDs in [place] (pt states leaving for [place] tomorrow). Pt to call or return to nearest ED with any questions/concerns or s/sx of complications/worsening symptoms. Pt escorted to front lobby by staff member via w/c with all personal belongings. D/C'd home in private vehicle driven by family member.
== END 2019-11-23 10:17 | disposition home or self-care (01) | DRG 853 ==
LOC: ER 23:14 → ED HOLD 11-15 05:06 → SUR 3N 11-15 08:00
PROVIDERS: ADMIT Internal Medicine; ATTEND Family Medicine
PROC: 0DB48ZX Excision of Esophagogastric Junction, Via Natural or Artificial Opening Endoscopic, Diagnostic (ICD-10-PCS; 2019-11-15)
PROC: 0DB68ZX Excision of Stomach, Via Natural or Artificial Opening Endoscopic, Diagnostic (ICD-10-PCS; 2019-11-15)
PROC: 0W3P8ZZ Control Bleeding in Gastrointestinal Tract, Via Natural or Artificial Opening Endoscopic (ICD-10-PCS; 2019-11-15)
PROC: 0T768DZ Dilation of Right Ureter with Intraluminal Device, Via Natural or Artificial Opening Endoscopic (ICD-10-PCS; principal; 2019-11-15 12:32)
DX: A41.01 Sepsis due to Methicillin susceptible Staphylococcus aureus (principal); E43 Unspecified severe protein-calorie malnutrition; K25.4 Chronic or unspecified gastric ulcer with hemorrhage; E87.1 Hypo-osmolality and hyponatremia; N13.6 Pyonephrosis; N17.9 Acute kidney failure, unspecified; B96.81 Helicobacter pylori [H. pylori] as the cause of diseases classified elsewhere; D50.0 Iron deficiency anemia secondary to blood loss (chronic); K21.0 Gastro-esophageal reflux disease with esophagitis; R73.9 Hyperglycemia, unspecified; K26.9 Duodenal ulcer, unspecified as acute or chronic, without hemorrhage or perforation; R74.0 Nonspecific elevation of levels of transaminase and lactic acid dehydrogenase [LDH]; D72.1 Eosinophilia; E83.51 Hypocalcemia; E86.0 Dehydration; E87.6 Hypokalemia; F17.200 Nicotine dependence, unspecified, uncomplicated; K29.70 Gastritis, unspecified, without bleeding; N18.9 Chronic kidney disease, unspecified; Z87.442 Personal history of urinary calculi; Z71.6 Tobacco abuse counseling
CPT/HCPCS: 43227; 43236; 43239; 43255; 93306; 99285; Z7506; 36415; 71045; 74176; 76000; 80053; 80061; 80074; 80305; 80320; 81001; 82272; 82948; 83605; 83690; 83735; 84145; 85007; 85025; 86677; 86703; 87040; 87077; 87081; 87088; 87186; 93005; 99152; 99153; A4618; A4620; C1758; C1769; C2617; C9113; G0378; J0171; J0696; J1100; J1885; J1956; J2001; J2250; J2270; J2310; J2405; J2704; J3010; J3370; J3480; J3490; J7030; J7040; J7120; Q9967